=== PATIENT | female | born 1980 | race Caucasian/White ===

== ENCOUNTER 2022-12-06 07:19 | Emergency (ER) | payer MEDICAID ==
[~2022-12-06] VITALS: Ht 162.6 cm; Wt 82.0 kg
[2022-12-06 07:55] VITALS: TEMP 98.3; O2SAT 98
[2022-12-06 09:15] VITALS: BP 161/101; PULSE 82; RESP 17
[2022-12-06] MEDS ORDERED: KETOROLAC 60MG/2ML VIAL IM ONE (09:15)
[2022-12-06 09:38] LABS: CLARITY URINE CLEAR (CLEAR); COLOR URINE YELLOW (YELLOW); KETONES URINE NEGATIVE (NEGATIVE); LEUKOCYTE ESTERASE URINE 1+ (NEGATIVE); NITRITE URINE NEGATIVE (NEGATIVE); OCCULT BLOOD URINE NEGATIVE (NEGATIVE); PROTEIN URINE NEGATIVE (NEGATIVE); SPECIFIC GRAVITY URINE 1.009 (1.005-1.030); UROBILINOGEN URINE 0.2 E.U./dL (0.2-1.0)
[2022-12-06 10:57] LABS: BASOPHILS % 0.6 % (0.0-2.0); EOSINOPHILS % 2.9 % (0.0-5.0); HEMATOCRIT. 32.4 % (36.0-48.0); HEMOGLOBIN. 10.6 g/dL (12.0-16.0); LYMPHOCYTES % 27.9 % (20.0-50.0); MEAN CORPUSCULAR HEMOGLOBIN 23.9 pg (28.0-32.0); MEAN CORPUSCULAR VOLUME 72.9 fL (81.0-99.0); MEAN PLATELET VOLUME 8.2 fl (7.4-10.4); MONOCYTES % 4.5 % (2.0-8.0); NEUTROPHILS % 64.1 % (40.0-76.0); PLATELET 479 x1000/uL (130-400); RED BLOOD CELL COUNT 4.44 mill/uL (4.2-5.4); RED CELL DISTRIBUTION WIDTH 14.6 % (11.6-14.6)
[2022-12-06 11:08] LABS: CHLORIDE 110 mEq/L (98-107)
[2022-12-06] MEDS ORDERED: IBUP-2028 MT (11:19)
[2022-12-06] MEDS ORDERED: CEPH500C2 MT (11:19)
== END 2022-12-06 11:33 | disposition home or self-care (01) ==
LOC: ER 07:19
DX: M54.50 Low back pain, unspecified (principal); N39.0 Urinary tract infection, site not specified
CPT/HCPCS: 99283; 80048; 81003; 81025; 85025; 36415; 96372; J1885

== ENCOUNTER 2024-01-12 08:30 | Emergency (ER) | payer MEDICAID ==
[~2024-01-12] VITALS: Ht 154.9 cm; Wt 86.0 kg
[~2024-01-12 08:30] MED LIST: CEPH500C2 MT; IBUP-2028 MT
[2024-01-12 08:47] VITALS: O2SAT 100
[2024-01-12 09:20] LABS: BASOPHILS % 0.7 % (0.0-2.0); EOSINOPHILS % 2.4 % (0.0-5.0); HEMATOCRIT. 33.6 % (36.0-48.0); HEMOGLOBIN. 10.8 g/dL (12.0-16.0); LYMPHOCYTES % 32.9 % (20.0-50.0); MEAN CORPUSCULAR HEMOGLOBIN 22.1 pg (28.0-32.0); MEAN CORPUSCULAR HGB CONC 32.1 g/dL (31.0-37.0); MEAN CORPUSCULAR VOLUME 68.9 fL (81.0-99.0); MEAN PLATELET VOLUME 7.2 fl (7.4-10.4); PLATELET 478 x1000/uL (130-400); RED BLOOD CELL COUNT 4.88 mill/uL (4.2-5.4); RED CELL DISTRIBUTION WIDTH 17.7 % (11.6-14.6); WHITE BLOOD COUNT 6.9 x1000/uL (4.5-11.0)
[2024-01-12 09:21] LABS: ADD RBC MORPHOLOGY YES; DIFFERENTIAL COMMENT 1
[2024-01-12 09:25] LABS: CLARITY URINE CLOUDY (CLEAR); COLOR URINE YELLOW (YELLOW); GLUCOSE URINE NEGATIVE (NEGATIVE); KETONES URINE NEGATIVE (NEGATIVE); LEUKOCYTE ESTERASE URINE 3+ (NEGATIVE); NITRITE URINE NEGATIVE (NEGATIVE); OCCULT BLOOD URINE 3+ (NEGATIVE); PROTEIN URINE NEGATIVE (NEGATIVE); SPECIFIC GRAVITY URINE 1.011 (1.005-1.030); UROBILINOGEN URINE 0.2 E.U./dL (0.2-1.0)
[2024-01-12 09:35] LABS: CHLORIDE 109 mEq/L (98-107); POTASSIUM 4.2 mEq/L (3.5-5.1); SODIUM 139 mEq/L (136-145)
[2024-01-12 09:36] LABS: CALCIUM 9.4 mg/dL (8.7-10.4); CARBON DIOXIDE 24 mEq/L (21-32)
[2024-01-12 09:41] LABS: CREATININE 0.6 mg/dL (0.6-1.0); GLUCOSE 102 mg/dL (70-105)
[2024-01-12 09:42] LABS: UREA NITROGEN BLOOD 6 mg/dL (9-23)
[2024-01-12 09:43] LABS: ALANINE AMINOTRANSFERASE 18 IU/L (10-49); ALBUMIN 4.8 g/dL (3.2-4.8); ASPARTATE AMINOTRANSFERASE 22 IU/L (<34)
[2024-01-12 09:44] LABS: BILIRUBIN DIRECT 0.1 mg/dL (<=3.0); BILIRUBIN TOTAL 0.4 mg/dL (0.1-1.0); PROTEIN TOTAL 7.7 g/dL (6.0-8.3)
[2024-01-12 09:51] LABS: SQUAMOUS EPITHELIAL CELL URINE 3+ /lpf (RARE/1+)
[2024-01-12 09:52] LABS: BACTERIA URINE TRACE; MUCUS URINE TRACE /lpf (< = 2+)
[2024-01-12 09:53] LABS: RBC URINE 0-2 /hpf (0-2)
[2024-01-12] MEDS: LIDOCAINE 5% PATCH TOP SCH (10:40)
[2024-01-12] MEDS: ACETAMINOPHEN 650MG/20.3ML UDC PO ONE (10:40)
[2024-01-12] MEDS: KETOROLAC 30MG/ML VIAL IM ONE (10:40)
[2024-01-12] MEDS ORDERED: SULF1TAB48 MT (11:01)
[2024-01-12 11:23] LABS: ANISOCYTOSIS 1+; MICROCYTOSIS 3+; PLATELET ESTIMATE INCREASED
[2024-01-12 11:31] VITALS: BP 133/70; PULSE 92; RESP 16; TEMP 37.00296; O2SAT 100
== END 2024-01-12 11:33 | disposition home or self-care (01) ==
LOC: ER 08:30
DX: M54.9 Dorsalgia, unspecified (principal); N39.0 Urinary tract infection, site not specified; I10 Essential (primary) hypertension
CPT/HCPCS: 99284; 80076; 80048; 81003; 81025; 83690; 85025; 87086; 36415; 93005; 96372; J1885

== ENCOUNTER 2024-05-26 08:23 | Emergency (ER) | payer MEDICAID ==
[~2024-05-26] VITALS: Ht 154.9 cm; Wt 81.6 kg
[~2024-05-26 08:23] MED LIST changes: +SULF1TAB48 MT
[2024-05-26 08:34] VITALS: O2SAT 98
[2024-05-26 09:05] LABS: CHLORIDE 110 mEq/L (98-107); POTASSIUM 4.3 mEq/L (3.5-5.1); SODIUM 141 mEq/L (136-145)
[2024-05-26 09:06] LABS: BASOPHILS % 0.7 % (0.0-2.0); CALCIUM 9.4 mg/dL (8.7-10.4); CARBON DIOXIDE 23 mEq/L (21-32); EOSINOPHILS % 4.3 % (0.0-5.0); HEMOGLOBIN. 10.8 g/dL (12.0-16.0); LYMPHOCYTES % 20.8 % (20.0-50.0); MEAN CORPUSCULAR HEMOGLOBIN 22.1 pg (28.0-32.0); MEAN CORPUSCULAR HGB CONC 31.8 g/dL (31.0-37.0); MEAN CORPUSCULAR VOLUME 69.4 fL (81.0-99.0); MEAN PLATELET VOLUME 7.3 fl (7.4-10.4); MONOCYTES % 3.8 % (2.0-8.0); NEUTROPHILS % 70.4 % (40.0-76.0); PLATELET 574 x1000/uL (130-400); RED BLOOD CELL COUNT 4.91 mill/uL (4.2-5.4); WHITE BLOOD COUNT 8.1 x1000/uL (4.5-11.0)
[2024-05-26 09:08] LABS: ADD RBC MORPHOLOGY YES; DIFFERENTIAL COMMENT 1
[2024-05-26 09:11] LABS: CREATININE 0.6 mg/dL (0.6-1.0); GLUCOSE 106 mg/dL (70-105); UREA NITROGEN BLOOD 10 mg/dL (9-23)
[2024-05-26 09:28] LABS: CLARITY URINE CLEAR (CLEAR); COLOR URINE DARK YELLOW (YELLOW); GLUCOSE URINE NEGATIVE (NEGATIVE); KETONES URINE NEGATIVE (NEGATIVE); LEUKOCYTE ESTERASE URINE NEGATIVE (NEGATIVE); NITRITE URINE NEGATIVE (NEGATIVE); OCCULT BLOOD URINE NEGATIVE (NEGATIVE); PH URINE 5.5 (4.5-8.0); PROTEIN URINE NEGATIVE (NEGATIVE); SPECIFIC GRAVITY URINE 1.018 (1.005-1.030); UROBILINOGEN URINE 0.2 E.U./dL (0.2-1.0)
[2024-05-26 11:21] VITALS: BP 141/86; PULSE 76; RESP 18; TEMP 36.89184; O2SAT 98
[2024-05-26 12:42] LABS: UCG KIT LOT# 873622; UCG SCREEN NEGATIVE
[2024-05-26 14:27] LABS: PLATELET ESTIMATE INCREASED
[2024-05-26 14:28] LABS: ANISOCYTOSIS 2+
== END 2024-05-26 11:30 | disposition home or self-care (01) ==
LOC: ER 08:23
DX: R10.32 Left lower quadrant pain (principal); I10 Essential (primary) hypertension; Z98.890 Other specified postprocedural states
CPT/HCPCS: 36415; 80048; 81003; 81025; 85025; 99291

== ENCOUNTER 2024-07-26 08:22 | Emergency (ER) | payer BC, MEDICAID ==
[~2024-07-26] VITALS: Ht 165.1 cm; Wt 81.6 kg
[2024-07-26 08:24] VITALS: BP 153/96; PULSE 89; RESP 18; TEMP 36.8; O2SAT 98; O2SAT 99
== END 2024-07-26 09:17 | disposition left against medical advice (07) ==
LOC: ER 08:22
DX: M54.50 Low back pain, unspecified (principal); I10 Essential (primary) hypertension
CPT/HCPCS: 99281

== ENCOUNTER 2024-08-15 08:40 | Emergency (ER) | payer BC ==
[~2024-08-15] VITALS: Ht 160 cm; Wt 81.8 kg
[2024-08-15 08:41] VITALS: O2SAT 99
[2024-08-15 08:54] VITALS: BP 145/99; PULSE 87; RESP 14; TEMP 36.7; O2SAT 96
[2024-08-15 09:32] LABS: BASOPHILS % 0.6 % (0.0-2.0); EOSINOPHILS % 2.7 % (0.0-5.0); HEMATOCRIT. 34.2 % (36.0-48.0); HEMOGLOBIN. 10.6 g/dL (12.0-16.0); LYMPHOCYTES % 17.5 % (20.0-50.0); MEAN CORPUSCULAR HEMOGLOBIN 21.3 pg (28.0-32.0); MEAN CORPUSCULAR HGB CONC 30.9 g/dL (31.0-37.0); MEAN CORPUSCULAR VOLUME 68.8 fL (81.0-99.0); MEAN PLATELET VOLUME 7.5 fl (7.4-10.4); MONOCYTES % 3.8 % (2.0-8.0); NEUTROPHILS % 75.4 % (40.0-76.0); PLATELET 545 x1000/uL (130-400); RED BLOOD CELL COUNT 4.97 mill/uL (4.2-5.4); RED CELL DISTRIBUTION WIDTH 19.3 % (11.6-14.6); WHITE BLOOD COUNT 10.1 x1000/uL (4.5-11.0)
[2024-08-15 09:39] LABS: ADD RBC MORPHOLOGY YES; CHLORIDE 107 mEq/L (98-107); DIFFERENTIAL COMMENT 1; SODIUM 140 mEq/L (136-145)
[2024-08-15 09:40] LABS: CALCIUM 9.6 mg/dL (8.7-10.4); CARBON DIOXIDE 24 mEq/L (21-32)
[2024-08-15] MEDS: ACETAMINOPHEN 325MG TABLET PO ONE (09:41)
[2024-08-15 09:45] LABS: CREATININE 0.5 mg/dL (0.6-1.0); GLUCOSE 101 mg/dL (70-105); UREA NITROGEN BLOOD 7 mg/dL (9-23)
[2024-08-15 09:47] LABS: ALANINE AMINOTRANSFERASE 17 IU/L (10-49); ALBUMIN 4.2 g/dL (3.2-4.8); ASPARTATE AMINOTRANSFERASE 19 IU/L (<34); BILIRUBIN DIRECT < 0.1 mg/dL (<=3.0); BILIRUBIN TOTAL 0.3 mg/dL (0.1-1.0); PROTEIN TOTAL 7.6 g/dL (6.0-8.3)
[2024-08-15 09:51] LABS: HCG SCREEN NEGATIVE
[2024-08-15 09:56] LABS: CLARITY URINE CLEAR (CLEAR); COLOR URINE YELLOW (YELLOW); GLUCOSE URINE NEGATIVE (NEGATIVE); KETONES URINE NEGATIVE (NEGATIVE); LEUKOCYTE ESTERASE URINE 2+ (NEGATIVE); NITRITE URINE NEGATIVE (NEGATIVE); OCCULT BLOOD URINE 3+ (NEGATIVE); PH URINE 5.5 (4.5-8.0); PROTEIN URINE TRACE (NEGATIVE); SPECIFIC GRAVITY URINE 1.015 (1.005-1.030); UROBILINOGEN URINE 0.2 E.U./dL (0.2-1.0)
[2024-08-15 10:20] LABS: BACTERIA URINE 1+; RBC URINE 50-100 /hpf (0-2); SQUAMOUS EPITHELIAL CELL URINE 1+ /lpf (RARE/1+); YEAST URINE NONE SEEN
[2024-08-15] MEDS ORDERED: CEPH500C2 MT (11:28)
[2024-08-15] MEDS ORDERED: IBUP-2029 MT (11:28)
[2024-08-15 12:35] LABS: ANISOCYTOSIS 2+; MICROCYTOSIS 3+; PLATELET ESTIMATE INCREASED
== END 2024-08-15 11:46 | disposition home or self-care (01) ==
LOC: ER 08:40
DX: R10.30 Lower abdominal pain, unspecified (principal); N30.00 Acute cystitis without hematuria
CPT/HCPCS: 36415; 76830; 76856; 80048; 80076; 81003; 81025; 84703; 85025; 86850; 86900; 99284

== ENCOUNTER 2025-03-29 08:42 | Emergency (ER) | payer BC, MEDICAID ==
[~2025-03-29] VITALS: Ht 157.5 cm; Wt 77.0 kg
[~2025-03-29 08:42] MED LIST changes: +IBUP-1455 MT
[2025-03-29 08:50] VITALS: O2SAT 100
[2025-03-29 09:46] LABS: CLARITY URINE CLOUDY (CLEAR); COLOR URINE YELLOW (YELLOW); GLUCOSE URINE NEGATIVE (NEGATIVE); KETONES URINE NEGATIVE (NEGATIVE); LEUKOCYTE ESTERASE URINE 3+ (NEGATIVE); NITRITE URINE NEGATIVE (NEGATIVE); OCCULT BLOOD URINE 1+ (NEGATIVE); PH URINE 7.0 (4.5-8.0); PROTEIN URINE TRACE (NEGATIVE); SPECIFIC GRAVITY URINE 1.013 (1.005-1.030); UROBILINOGEN URINE 0.2 E.U./dL (0.2-1.0)
[2025-03-29] MEDS: ACETAMINOPHEN 325MG TABLET PO ONE (09:47)
[2025-03-29] MEDS: IBUPROFEN 600MG TABLET PO ONE (09:48)
[2025-03-29 10:34] LABS: SQUAMOUS EPITHELIAL CELL URINE 2+ /lpf (RARE/1+)
[2025-03-29 10:37] LABS: WBC URINE TNTC /hpf (0-2)
[2025-03-29 10:38] LABS: BACTERIA URINE 2+
[2025-03-29] MEDS ORDERED: IBUP-2028 MT (11:13)
[2025-03-29] MEDS ORDERED: CEPH500C2 MT (11:13)
[2025-03-29 11:41] VITALS: BP 142/91; PULSE 85; RESP 18; TEMP 36.7; O2SAT 99
== END 2025-03-29 11:44 | disposition home or self-care (01) ==
LOC: ER 08:42
DX: N10 Acute pyelonephritis (principal); E66.9 Obesity, unspecified; Z79.899 Other long term (current) drug therapy
CPT/HCPCS: 81003; 81025; 87077; 87186; 99283